=== PATIENT | male | born 1995 | race Caucasian/White ===

== ENCOUNTER 2025-07-09 16:29 | Emergency (ER) | payer OTHER ==
[~2025-07-09] VITALS: Ht 185.4 cm; Wt 86.2 kg
[2025-07-09] MEDS ORDERED: Prednisone20 MG PO (17:11)
== END 2025-07-09 17:17 | disposition home or self-care (01) ==
LOC: ER 16:29
DX: L23.7 Allergic contact dermatitis due to plants, except food (principal)
CPT/HCPCS: 99282